=== PATIENT | female | born 1970 | race Caucasian/White ===

== ENCOUNTER 2020-03-02 10:11 | Emergency (ER) | payer BC ==
[2020-03-02] MEDS ORDERED: PREDNISONE 20 MG TABLET PO ONE (10:34)
[2020-03-02] MEDS ORDERED: IPRATROPIUM/ALBUTEROL 0.5-2.5 MG/3 ML AMPUL NEB ONE (10:34)
[2020-03-02] MEDS ORDERED: BENZONATATE 100 MG CAPSULE PO ONE (10:35)
--- NOTE | 2020-03-02 11:07 | RADIOLOGY REPORT (SQ) ---
EXAM DESCRIPTION: CHEST SINGLE VIEW IMAGES COMPLETED DATE/TIME: 03/02/2020 10:57 am REASON FOR STUDY: Wheezing, cough, congestion, fever COMPARISON: None. EXAM PARAMETERS: NUMBER OF VIEWS: One view. TECHNIQUE: Single frontal radiographic view of the chest acquired. RADIATION DOSE: NA LIMITATIONS: None. FINDINGS: LUNGS AND PLEURA: Mild asymmetric right lower lobe airspace disease. Findings can be seen with viral illness or atypical pneumonia. MEDIASTINUM AND HILAR STRUCTURES: No masses. Contour normal. HEART AND VASCULAR STRUCTURES: Heart normal in size. Normal vasculature. BONES: No acute findings. HARDWARE: None in the chest. OTHER: No other significant finding. IMPRESSION: Focal asymmetric mainly peripheral right lower lobe airspace disease. TECHNICAL DOCUMENTATION: JOB ID: [id number] 2010 [employer]- All Rights Reserved Reading location - IP/workstation name: [email or web address]
[2020-03-02] MEDS ORDERED: ALBUTEROL SULFATE 0.083% NEB 2.5 MG/3 ML AMPUL NEB ONE (11:19)
[2020-03-02 11:20] LABS: ABSOLUTE EOSINOPHILS # (AUTO) 0.2 10^3/uL (0.0-0.6); ABSOLUTE LYMPHOCYTES (AUTO) 1.4 10^3/uL (0.5-4.7); ABSOLUTE MONOCYTES (AUTO) 0.3 10^3/uL (0.1-1.4); ABSOLUTE NEUT (AUTO) 1.7 10^3/uL (1.7-8.2); BASOPHILS % (AUTO) 0.8 % (0-2); EOSINOPHILS % (AUTO) 4.9 % (0-6); HEMATOCRIT 42.3 % (36.0-47.0); HEMOGLOBIN 14.9 g/dL (12.0-15.5); LYMPHOCYTES % (AUTO) 39.6 % (13-45); MEAN CORPUSCULAR HEMOGLOBIN 31.9 pg (27.0-33.4); MEAN CORPUSCULAR HGB CONC 35.3 g/dL (32.0-36.0); MEAN CORPUSCULAR VOLUME 90 fl (80-97); MONOCYTES % (AUTO) 8.6 % (3-13); PLATELET COUNT 139 10^3/uL (150-450); RED BLOOD COUNT 4.68 10^6/uL (3.72-5.28); RED CELL DISTRIBUTION WIDTH 15.3 % (11.5-14.0); SEGMENTED NEUTROPHILS % (AUTO) 46.1 % (42-78); TOTAL CELLS COUNTED % (AUTO) 100 %; WHITE BLOOD COUNT 3.6 10^3/uL (4.0-10.5)
--- NOTE | 2020-03-02 11:30 | ER Document Report ---
Entered by MAGGI MCKEON SCRIBE 03/02/20 1035 Acting as scribe for:STEVEN MAK MD ED Respiratory Problem - General Stated Complaint: SHORTNESS OF BREATH Time Seen by Provider: 03/02/20 10:18 Primary Care Provider: ENRIQUE BRANCH PA-C [Primary Care Provider] - Follow up as needed Mode of Arrival: Ambulatory Information source: Patient Notes: This 49 year old female patient presents to the emergency department today with complaints of a cough with associated shortness of breath for going on one week. Patient states she initially became short of breath on 02/25 and a cough started the next day. Patient states that on the evening of 02/26 she had a temperature of 102.4 but she has not had a fever since. Patient states she has also had wheezing which is much worse at night. Patient denies nausea, vomiting, diarrhea, or getting a flu shot this year. - Related Data Allergies/Adverse Reactions: No Known Allergies Allergy (Verified 03/02/20 10:44) Past Medical History - General Information source: Patient - Social History Smoking Status: Former Smoker - quit in January 2020 Cigarette use (# per day): No Frequency of alcohol use: None Drug Abuse: None Lives with: Family Family History: Reviewed & Not Pertinent Endocrine Medical History: Reports: Hx Hypothyroidism Past Surgical History: Reports: Hx Cholecystectomy, Hx Orthopedic Surgery - Left ACL/Medial meniscus repair. Right shoulder reconstruction. Review of Systems - Review of Systems Constitutional: See HPI, Fever - several days ago, one temperature was 102.4, none since EENT: See HPI, Throat pain Cardiovascular: No symptoms reported Respiratory: See HPI, Cough, Short of breath, Wheezing Gastrointestinal: denies: Diarrhea, Nausea, Vomiting Genitourinary: No symptoms reported Female Genitourinary: No symptoms reported Musculoskeletal: No symptoms reported Skin: No symptoms reported Hematologic/Lymphatic: No symptoms reported Neurological/Psychological: No symptoms reported -: Yes All other systems reviewed and negative Physical Exam - Vital signs Vitals: Temp Pulse Resp BP Pulse Ox 97.8 F 72 22 H 144/90 H 95 03/02/20 10:27 03/02/20 10:27 03/02/20 10:27 03/02/20 10:27 03/02/20 10:27 - Notes Notes: Physical Exam: General: Alert, appears well. Voice is hoarse. Occasional congested cough with audible wheezing. HEENT: Normocephalic. Atraumatic. PERRL. Extraocular movements intact. Oropharynx clear. Neck: Supple. Non-tender. Respiratory: No respiratory distress. Diffuse mild inspiratory and expiratory wheezes with some rhonchi when the patient coughs. Cardiovascular: Regular rate and rhythm. Abdominal: Normal appearance. Back: No gross abnormalities. Extremities: Moves all four extremities. Upper extremities: Normal inspection. Normal ROM. Lower extremities: Normal inspection. No edema. Normal ROM. Neurological: Normal cognition. AAOx4. Normal speech. Psychological: Normal affect. Normal Mood. Skin: Warm. Dry. Normal color. Course - Re-evaluation Re-evalutation: 03/02/20 12:44 After breathing treatment the patient states her breathing feels a lot better. She is able to take better deeper breaths. On auscultation she does have more air movement, and the wheezes and rhonchi are much louder now. - Vital Signs Vital signs: Temp Pulse Resp BP Pulse Ox 97.8 F 72 22 H 144/90 H 95 03/02/20 10:27 03/02/20 10:27 03/02/20 10:27 03/02/20 10:27 03/02/20 10:27 - Laboratory Result Diagrams: 03/02/20 11:04 03/02/20 11:04 Laboratory results interpreted by me: 03/02/20 03/02/20 11:04 11:04 WBC 3.6 L RDW 15.3 H Plt Count 139 L Chloride 111 H Creatinine 0.46 L Total Protein 6.1 L - Diagnostic Test Radiology reviewed: Image reviewed, Reports reviewed - Portable chest x-ray shows focal right lower lobe mild airspace disease consistent with viral infection or atypical pneumonia. Discharge - Discharge Clinical Impression: Acute bronchitis with bronchospasm Pneumonia Qualifiers: Pneumonia type: due to unspecified organism Laterality: right Lung location: lower lobe of lung Qualified Code(s): J18.9 - Pneumonia, unspecified organism Condition: Stable Disposition: HOME, SELF-CARE Additional Instructions: Bronchitis with Bronchospasm (Wheezing): You have bronchitis with bronchospasm (wheezing). Sometimes people develop wheezing with a chest cold. This occurs either because of an underlying tendency toward asthma or because the virus itself irritates the bronchial tubes. This irritation causes cough, shortness of breath, and wheezing. Emergency treatment of bronchospasm may include adrenaline shots or bronchodilator aerosol. You may feel lightheaded and have a rapid pulse for an hour or two. Rest and get plenty of fluids. At home, we'll treat you with a bronchodilator inhaler. Corticosteroids may be required for some patients. Until you recover, avoid chemical fumes, dusts, pollens, and exercising in very cold or dry air. If you smoke, stop now! Most cases of bronchitis get better without antibiotics. We prescribe antibiotics when we believe bacteria are damaging your airways, or if there's high risk the bronchitis will worsen into pneumonia. Increase your fluid intake. A cool mist humidifier may make your lungs more comfortable. An expectorant (cough medicine that loosens phlegm) can help. Repeated episodes of bronchitis and bronchospasm may result in lung damage -- for example, chronic bronchitis, recurrent pneumonias, or emphysema. If you develop a fever, increased wheezing, chest pain, or severe shortness of breath, you should contact the doctor immediately. Take medications as prescribed. Start the prednisone tomorrow, you have had today's dose here in the emergency room. Drink plenty of fluids and get plenty of rest. Try taking the generic version of Delsym DM for additional cough control as need ed. Self quarantine at home until you get the results of the COVID-19 testing. Follow-up with a local primary care provider if not improving. RETURN TO THE EMERGENCY ROOM IF ANY NEW OR WORSENING SYMPTOMS. Prescriptions: Prednisone [Deltasone 10 mg Tablet] 10 mg PO ASDIR PRN #21 tablet PRN Reason: Doxycycline Hyclate 100 mg PO BID #20 tablet. Albuterol Sulfate [Proair Hfa Inhalation Aerosol 8.5 gm Mdi] 2 puff IH ASDIR PRN #1 mdi PRN Reason: Benzonatate [Tessalon Perles 100 mg Capsule] 100 mg PO ASDIR PRN #30 capsule PRN Reason: Referrals: ENRIQUE BRANCH PA-C [Primary Care Provider] - Follow up as needed I personally performed the services described in the documentation, reviewed and edited the documentation which was dictated to the scribe in my presence, and it accurately records my words and actions.
[2020-03-02 11:36] LABS: ALBUMIN 3.8 g/dL (3.5-5.0); ALKALINE PHOSPHATASE 60 U/L (38-126); ANION GAP 5 (5-19); ASPARTATE AMINO TRANSFERASE 30 U/L (14-36); BILIRUBIN,TOTAL 0.6 mg/dL (0.2-1.3); BLOOD UREA NITROGEN 7 mg/dL (7-20); CALCIUM 8.9 mg/dL (8.4-10.2); CARBON DIOXIDE 23 mmol/L (22-30); CHLORIDE 111 mmol/L (98-107); GLUCOSE 95 mg/dL (75-110); POTASSIUM 4.3 mmol/L (3.6-5.0); TOTAL PROTEIN 6.1 g/dL (6.3-8.2)
[2020-03-02 12:59] VITALS: BP 144/86
== END 2020-03-02 13:00 | disposition home or self-care (01) ==
LOC: ER 10:11
DX: J20.9 Acute bronchitis, unspecified (principal); J18.9 Pneumonia, unspecified organism; R06.2 Wheezing; Z87.891 Personal history of nicotine dependence; Z90.49 Acquired absence of other specified parts of digestive tract
CPT/HCPCS: 94640 ×2; 99285; 36415; 85025; 80053; 71045; J7512; J7620

== ENCOUNTER → 2020-03-02 | Outpatient (CLI) | payer BC ==
[2020-03-02 10:11] VITALS: BP 166/80
--- NOTE | 2020-03-02 10:11 | ER RDC ASSESSMENT REPORT ---
Intake - In the Last 14 days Have you traveled outside [place]?: No Have you been in close contact with someone CONFIRMED: No Worked in Healthcare?: No - Symptoms Subjective Fever([place] feverish): Yes --How many day(s)?: Reports fever earlier 102.4 Chills: Yes Muscule Aches: Yes Runny Nose: Yes Sore Throat: Yes Cough (New or worsening chronic cough): Yes --How many day(s)?: Wheezing moist non productive cough Shortness of breath: Yes Nausea or Vomiting: No Headache: No Abdominal Pain: No Diarrhea(3 or more loose stools in last 24 hours): No - Do you have any of the following Chronic lung disease: Asthma or emphysema or COPD: No Cystic Fibrosis: No Diabetes: No High Blood Pressure: No Cardiovascular Disease: No Chronic Kidney Disease: No Chronic Liver Disease: No Chronic blood disorder like Sickle Cell Disease: No Weak immune system due to disease or medication: No Neurologic condition that limits movement: No Developmental delay - Moderate to Severe: No Recent (within past 2 weeks) or current : No Morbid Obesity (>100 pounds over ideal weight): No Obesity Comment: Height 5 feet 7 inches weight 205 pounds - Objective Temperature: 97.3 F Pulse Rate: 78 Respiratory Rate: 22 Blood Pressure: 166/80 O2 Sat by Pulse Oximetry: 95 Objective: Given above, testing performed: If Testing Performed: Test Specimen Type Sent to General - General Information source: Patient Notes: Patient arrived to [facility] for COVID testing reports started feeling sick on February 25 with fever, cough cold like symptoms. Reports has been wheezing and recently and does not have any history of taking inhalors. states I can hear her breathing with the TV on. Reports body aches, chills. Reports stopped smoking a few weeks ago and up to that point was a one pack per day smoker. - Related Data Allergies/Adverse Reactions: No Known Allergies Allergy (Verified 03/02/20 10:44) Past Medical History - Social History Smoking Status: Current Every Day Smoker - Stopped smoking a couple of weeks ago. Smoking a pack a day prior to that time. Physical Exam - General General appearance: Appears well, Alert In distress: None Notes: PHYSICAL EXAMINATION: GENERAL: Well-appearing and in no acute distress. HEAD: Atraumatic, normocephalic. EYES: sclera anicteric, conjunctiva are normal. ENT: nares patent. Moist mucous membranes. NECK: Normal range of motion, supple without lymphadenopathy LUNGS: CTAB and equal. Bilateral expiratory inspiratory wheezes noted with rales or rhonchi. noted worse to left than right. Moist non productive cough. No respiratory distress. HEART: Regular rate and rhythm without murmurs ABDOMEN: Soft, nontender, normal bowel sounds, no guarding. EXTREMITIES: No cyanosis. NEUROLOGICAL: Normal speech. PSYCH: Normal mood, normal affect. SKIN: Warm, Dry, normal turgor, - Respiratory Breath sounds: Nonproductive cough, Rhonchi, Wheezing Diagnostic Results Laboratory Results: Results for rapid strep and rapid flu are negative. Pending strep culture and pending covid testing results. Patient to ED for evaluation due to wheezing and cough. Instruction for COVID 19 were provided to include. As a person under investigation for Covid 19, the [facility], division of public health advises you to adhere to the following guidance until your test results are reported to you. If your test result is positive, you will receive additional information from your provider and your local health department at that time. Remain at home until you are cleared by the health provider or public health authorities. Keep a log of visitors to your home, notify any visitors to your home of your isolation status. If you plan to move to a new address or leave the county, notify the local health department in your County. Call your doctor or seek care if you have an urgent medical need. Before seeking medical care, call ahead to get instructions from the provider before arriving at the medical office clinic or hospital. Notify them that you are being tested for the virus that causes Covid 19 so that arrangements can be made, as necessary, to prevent transmission to others in the healthcare setting. Next, notify the local health department in your county. If a medical emergency arises and you need to call 911, inform the first responders that you are being tested for the virus that causes Covid 19. Next, notify the local health department in your county. Patient Education/Counseling Counseling/Education: Patient presents with upper respiratory symptoms worrisome for possible Covid 19. Patient does not have emergency worring symptoms such as difficulty breathing, shortness of breath, chest pain, pressure, confusion or cyanosis. Patient is stable however has adventitous breathsounds needing further evaluation. Discussed with ED charge nurse, patient and . Patient to go to ED. Specimans for Strep flu and Covid testing sent to the lab. Patient's vital signs are stable and patient is nontoxic in appearance. Good return precautions have been discussed with patient, patient verbalized understanding and is agreeable with discharge plan of care at this time. RDC Discharge - Discharge Clinical Impression: COVID - 19 SCREENING, Cough, Wheezing on auscultation Upper respiratory infection Qualifiers: URI type: unspecified URI Qualified Code(s): J06.9 - Acute upper respiratory infection, unspecified Condition: Stable Disposition: To ED - TO ED for further evaluation
[2020-03-02 10:36] LABS: A TYPE INFLUENZA AG NEGATIVE (NEGATIVE)
[2020-03-02 10:37] LABS: B INFLUENZA AG NEGATIVE (NEGATIVE)
== END ==
LOC: RDC 09:33
PROVIDERS: ATTEND Nurse Practitioner Family
DX: J06.9 Acute upper respiratory infection, unspecified (principal); Z20.828 Contact with and (suspected) exposure to other viral communicable diseases; R50.9 Fever, unspecified; J02.9 Acute pharyngitis, unspecified; R05 Cough; R06.02 Shortness of breath; R06.2 Wheezing; R09.89 Other specified symptoms and signs involving the circulatory and respiratory systems; M79.10 Myalgia, unspecified site; Z87.891 Personal history of nicotine dependence
CPT/HCPCS: 87070; 87635; 87804; 87880; 99211